=== PATIENT | female | born 1950 | race Caucasian/White ===

== ENCOUNTER 2019-04-20 11:24 | Emergency (ER) | payer MEDICARE ==
--- OUTSIDE RECORDS SUMMARY | 2019-04-20 11:53 | XMS REPORT ---
:1950 Author Name Sabinegaby Melanie Address [address] [place] [address] Care Team Providers Name Role Phone Melanie Mccann Unavailable Unavailable PROBLEMS Type Condition ICD9-CM Code [id number] Onset Condition SNOMED Code Code Dates Status Problem Incomplete N81.2 Active 835509200 uterovaginal prolapse Problem Leiomyoma of D25.9 Active 06949008 uterus, unspecified Problem Postmenopausal N95.0 Active 43316414 bleeding Problem Family history of Z80.41 Active 877463410 malignant neoplasm of ovary Problem Family history of Z80.49 Active 957622610 malignant neoplasm of other genital organs Problem Family history of Z80.3 Active 995782452 malignant neoplasm of breast ALLERGIES No Known Allergies ENCOUNTERS Encounter Location Date Diagnosis [facility] [address] Mar, OBGYN [place], [place] [id number] [facility] 103 Feb, OBGYN [place], [place] [id number] [facility] 103 Feb, Postmenopausal bleeding OBGYN [facility] N95.0 and [place] [id number] uterus, unspecified D25.9 [facility] 103 Feb, OBGYN [place], [place] [id number] [facility] 103 Feb, Postmenopausal bleeding OBGYN [facility] N95.0 and [place] [id number] uterus, unspecified D25.9 [facility] 103 Jan, Postmenopausal bleeding OBGYN [facility], [place] [id number] [facility] 103 Jan, Postmenopausal bleeding OBGYN [facility], [place] [id number] [facility] 103 Jan, Postmenopausal bleeding OBGYN [facility], [place] [id number] [facility] 103 Jan, Postmenopausal bleeding OBGYN [facility], N95.0 ; [place] [id number] uterus, unspecified D25.9 ; Abnormal findings on diagnostic imaging of other specified body structures R93.89 ; Family history of malignant neoplasm of breast Z80.3 ; Family history of malignant neoplasm of ovary Z80.41 ; Family history of malignant neoplasm of other genital organs Z80.49 ; Incomplete uterovaginal prolapse N81.2 and Family history of malignant neoplasm of other organs or systems Z80.8 IMMUNIZATIONS No Known Immunizations SOCIAL HISTORY Never Assessed REASON FOR REFERRAL FUNCTIONAL STATUS PLAN OF CARE Activity Details Follow Up as scheduled Reason: VITAL SIGNS Height 67.25 in 2019-03-03 Weight 211 lbs 2019-03-03 BMI 32.80 kg/m2 2019-03-03 Blood pressure systolic 130 mm Hg 2019-03-03 Blood pressure diastolic 70 mm Hg 2019-03-03 MEDICATIONS Medication Instructions Dosage Frequency Start End Duration Status Date Date calcium Active Cytotec 200 mcg orally 1 tab at 1 tab(s) Feb, dinner night 2018 before procedure, 1 tab at bedtime night before procedure, 1 tab at 6 AM day of procedure Aspirin Low Dose chewed once a 1 tab(s) 24h 30 day(s) Active 81 mg day metformin 500 mg orally once a 1 tab(s) 24h 30 day(s) Active day Fish oil Active escitalopram 10 orally once a 1 tab(s) 24h 30 day(s) Active mg day pantoprazole 40 orally once a 1 tab(s) 24h 30 day(s) Active mg day Trelegy Ellipta inhaled once a 1 puff(s) 24h Active 100 mcg-62.5 day mcg-25 mcg/inh Ventolin HFA 90 inhaled 4 times 2 puff(s) 6h 30 day(s) Active mcg/inh a day B-Plex Active atorvastatin 40 orally once a 1 tab(s) 24h 30 day(s) Active mg day PROCEDURES No Known procedures RESULTS No Results REASON FOR VISIT in office hyst d&c presurg. Insurance Providers [facility] Health Member Patient Patient Patient Patient Patient Subscriber Subscriber Subscriber Group Insurance Plan Plan Plan Plan ID Relationship Address Phone Name Date of ID Name Date of No Type Insurance Insurance Insurance Coverage to Subscriber Address Phone Name Dates Aetna [phone] Aetna self Tia [id number] Medicare [id number] [place] [address] MEDICAL (GENERAL) HISTORY Type Description Date Medical History hyperlipidemia Medical History DM type 2 Medical History COPD Medical History Depression Surgical History tubal ligation Surgical History right breast bx - ok 1998 Surgical History benji. breast bx - ok 1999 Hospitalization History childbirth 1970 Hospitalization History childbirth 1973 Hospitalization History see above
--- OUTSIDE RECORDS SUMMARY | 2019-04-20 11:53 | XMS REPORT ---
:1950 Author Organization [facility] Address [address] [place] [address] Care Team Providers Name Role Phone Barbara Monique Unavailable Unavailable PROBLEMS Type Condition ICD9-CM Code [id number] Onset Condition SNOMED Code Code Dates Status Problem Incomplete N81.2 Active 732172674 uterovaginal prolapse Problem Leiomyoma of D25.9 Active 46879420 uterus, unspecified Problem Postmenopausal N95.0 Active 51672155 bleeding Problem Family history of Z80.41 Active 053029541 malignant neoplasm of ovary Problem Family history of Z80.49 Active 070674566 malignant neoplasm of other genital organs Problem Family history of Z80.3 Active 913327136 malignant neoplasm of breast ALLERGIES No Known Allergies ENCOUNTERS Encounter Location Date Diagnosis [facility] [address] Mar, OBGYN [place], [place] [id number] [facility] Feb, Postmenopausal bleeding OBGYN [facility] N95.0 and [place] [id number] uterus, unspecified D25.9 [facility] 103 Feb, Postmenopausal bleeding OBGYN [facility] N95.0 and [place] [id number] uterus, unspecified D25.9 [facility] 103 Feb, OBGYN [place], [place] [id number] [facility] 103 Feb, Postmenopausal bleeding OBGYN [facility] N95.0 and [place] [id number] uterus, unspecified D25.9 [facility] 103 Jan, Postmenopausal bleeding OBGYN [facility], [place] [id number] [facility] 103 Jan, Postmenopausal bleeding OBGYN [facility], [place] [id number] [facility] Jan, Postmenopausal bleeding OBGYN [facility], [place] [id number] [facility] Jan, Postmenopausal bleeding OBGYN [facility], N95.0 ; [place] [id number] uterus, unspecified D25.9 ; Abnormal findings on [...] PLAN OF CARE Activity Details Follow Up f/u 2 wk post-op Reason: Pending Test Gynecologic Biopsy VITAL SIGNS Height 67.25 in 2019-03-09 Weight 211 lbs 2019-03-09 BMI 32.80 kg/m2 2019-03-09 Blood pressure systolic 118 mm Hg 2019-03-09 Blood pressure diastolic 66 mm Hg 2019-03-09 MEDICATIONS Medication Instructions Dosage Frequency Start End Duration Status Date Date metformin 500 mg orally once a 1 tab(s) 24h 30 day(s) Active day Trelegy Ellipta inhaled once a 1 puff(s) 24h Active 100 mcg-62.5 day mcg-25 mcg/inh B-Plex Active Ventolin HFA 90 inhaled 4 times 2 puff(s) 6h 30 day(s) Active mcg/inh a day escitalopram 10 orally once a 1 tab(s) 24h 30 day(s) Active mg day Cytotec 200 mcg orally 1 tab at 1 tab(s) Feb, Active dinner night 2018 before procedure, 1 tab at bedtime night before procedure, 1 tab at 6 AM day of procedure Fish oil Active Aspirin Low Dose chewed once a 1 tab(s) 24h 30 day(s) Active 81 mg day calcium Active atorvastatin 40 orally once a 1 tab(s) 24h 30 day(s) Active mg day pantoprazole 40 orally once a 1 tab(s) 24h 30 day(s) Active mg day PROCEDURES Procedure Date Ordered Result Body Site PARACERVICAL BLOCK Mar 09, 2019 HYSTEROSCOPY, BIOPSY Mar 09, 2019 RESULTS No Results REASON FOR VISIT in office [facility] d&c Insurance Providers [facility] Health Member Patient Patient Patient Patient Patient Subscriber Subscriber Subscriber Group Insurance Plan Plan Plan Plan ID Relationship Address Phone Name Date of ID Name Date of No Type Insurance Insurance Insurance Coverage to Subscriber Address Phone Name Dates Aetna [phone] Aetna self Tia [id number] Medicare [id number] [place] [address] MEDICAL (GENERAL) HISTORY Type Description Date Medical History hyperlipidemia Medical History DM type 2 Medical History COPD Medical History Depression Surgical History tubal ligation Surgical History right breast bx - ok 1998 Surgical History benji. breast bx - ok 1999 Hospitalization History childbirth 1970 Hospitalization History childbirth 1972 Hospitalization History see above
--- OUTSIDE RECORDS SUMMARY | 2019-04-20 11:53 | XMS REPORT ---
:1950 Author Organization [facility] Address [address] [place] [address] Care Team Providers Name Role Phone Barbara Monique Unavailable Unavailable PROBLEMS Type Condition ICD9-CM Code [id number] Onset Condition SNOMED Code Code Dates Status Problem Incomplete N81.2 Active 120335550 uterovaginal prolapse Problem Leiomyoma of D25.9 Active 83872044 uterus, unspecified Problem Postmenopausal N95.0 Active 38314330 bleeding Problem Family history of Z80.41 Active 355074192 malignant neoplasm of ovary Problem Family history of Z80.49 Active 149870082 malignant neoplasm of other genital organs Problem Family history of Z80.3 Active 531774103 malignant neoplasm of breast ALLERGIES No Known Allergies ENCOUNTERS Encounter Location Date Diagnosis [facility] [address] Feb, OBGYN [place], [place] [id number] [facility] 103 Feb, Postmenopausal bleeding OBGYN [facility] N95.0 [place] [id number] uterus, unspecified D25.9 [facility] Jan, Postmenopausal bleeding OBGYN [facility] N95.0 [place] [id number] [facility] 103 Jan, Postmenopausal bleeding OBGYN [facility] N95.0 [place] [id number] [facility] 103 Jan, Postmenopausal bleeding [facility]YN [facility]95.0 [place] [id number] [facility] Jan, Postmenopausal bleeding OBGYN [facility], N95.0 ; [place] [id number] uterus, unspecified D25.9 ; Abnormal findings on [...] PLAN OF CARE Activity Details Follow Up Schedule in hysteroscopy, D&C Reason: VITAL SIGNS Height 67.25 in 2019-02-28 Weight 211 lbs 2019-02-28 BMI 32.80 kg/m2 2019-02-28 Blood pressure systolic 140 mm Hg 2019-02-28 Blood pressure diastolic 88 mm Hg 2019-02-28 MEDICATIONS Medication Instructions Dosage Frequency Start End Duration Status Date Date calcium Active escitalopram 10 orally once a 1 tab(s) 24h 30 day(s) Active mg day Trelegy Ellipta inhaled once a 1 puff(s) 24h Active 100 mcg-62.5 day mcg-25 mcg/inh Ventolin HFA 90 inhaled 4 times 2 puff(s) 6h 30 day(s) Active mcg/inh a day metformin 500 mg orally once a 1 tab(s) 24h 30 day(s) Active day Aspirin Low Dose chewed once a 1 tab(s) 24h 30 day(s) Active 81 mg day pantoprazole 40 orally once a 1 tab(s) 24h 30 day(s) Active mg day Fish oil Active atorvastatin 40 orally once a 1 tab(s) 24h 30 day(s) Active mg day B-Plex Active PROCEDURES No Known procedures RESULTS No Results REASON FOR VISIT fup to hystero/emb fup, Recommend in office hysteroscopy Insurance Providers [facility] Health Member Patient Patient Patient Patient Patient Subscriber Subscriber Subscriber Group Insurance Plan Plan Plan Plan ID Relationship Address Phone Name Date of ID Name Date of No Type Insurance Insurance Insurance Coverage to Subscriber Address Phone Name Dates Aetna [phone] Aetna self Tia [id number] Medicare [id number] [place] [address] MEDICAL (GENERAL) HISTORY Type Description Date Medical History hyperlipidemia Medical History DM type 2 Medical History COPD Medical History Depression Surgical History tubal ligation Surgical History right breast bx - ok 1998 Surgical History benji. breast bx - ok 1999 Hospitalization History childbirth 1971 Hospitalization History childbirth 1973 Hospitalization History see above
--- OUTSIDE RECORDS SUMMARY | 2019-04-20 11:53 | XMS REPORT ---
:1950 Author Organization [facility] Address [address] [place] [address] Care Team Providers Name Role Phone Barbara Monique Unavailable Unavailable PROBLEMS Type Condition ICD9-CM Code [id number] Onset Condition SNOMED Code Code Dates Status Problem Incomplete N81.2 Active 201707808 uterovaginal prolapse Problem Leiomyoma of D25.9 Active 38883143 uterus, unspecified Problem Postmenopausal N95.0 Active 49221819 bleeding Problem Family history of Z80.41 Active 086264835 malignant neoplasm of ovary Problem Family history of Z80.49 Active 986249988 malignant neoplasm of other genital organs Problem Family history of Z80.3 Active 672672039 malignant neoplasm of breast ALLERGIES No Known Allergies ENCOUNTERS Encounter Location Date Diagnosis [facility] 103 Mar, OBGYN [place], [place] [id number] [facility] 103 Mar, Postmenopausal bleeding OBGYN [facility] N95.0 ; [place] [id number] uterus, unspecified D25.9 and Unspecified lump in unspecified breast N63.0 [facility] 103 Feb, Postmenopausal bleeding OBGYN [facility] N95.0 and [place] [id number] uterus, unspecified D25.9 [facility] 103 Feb, Postmenopausal bleeding OBGYN [facility] N95.0 and [place] [id number] uterus, unspecified D25.9 [facility] 103 Feb, [facility] [place] [id number] [facility] 103 Feb, Postmenopausal bleeding OBG[facility], N95.0 [place] [id number] uterus, unspecified D25.9 [facility] 103 Jan, Postmenopausal bleeding [facility]BG[facility], [place]95.0 [place] [id number] [facility] 103 Jan, Postmenopausal bleeding OBGYN [facility], [place] [id number] [facility] 103 Jan, Postmenopausal bleeding OBG[facility], [place] [id number] [facility] 103 Jan, Postmenopausal bleeding [facility], N95.0 ; [place] [id number] uterus, unspecified D25.9 ; Abnormal findings on [...] PLAN OF CARE Activity Details Follow Up F/u 2 weeks to L breast biopsy. F/u 3 - 4 mo to reassess for PMB. Reason: Pending Test Breast Biopsy VITAL SIGNS Height 67.25 in 2019-04-06 Weight 211 lbs 2019-04-06 BMI 32.80 kg/m2 2019-04-06 Blood pressure systolic 144 mm Hg 2019-04-06 Blood pressure diastolic 86 mm Hg 2019-04-06 MEDICATIONS Medication Instructions Dosage Frequency Start End Duration Status Date Date escitalopram 10 orally once a 1 tab(s) 24h 30 day(s) Active mg day B-Plex Active pantoprazole 40 orally once a 1 tab(s) 24h 30 day(s) Active mg day atorvastatin 40 orally once a 1 tab(s) 24h 30 day(s) Active mg day calcium Active metformin 500 mg orally once a 1 tab(s) 24h 30 day(s) Active day Trelegy Ellipta inhaled once a 1 puff(s) 24h Active 100 mcg-62.5 day mcg-25 mcg/inh Ventolin HFA 90 inhaled 4 times 2 puff(s) 6h 30 day(s) Active mcg/inh a day Fish oil Active Aspirin Low Dose chewed once a 1 tab(s) 24h 30 day(s) Active 81 mg day PROCEDURES Procedure Date Ordered Result Body Site TANGNTL BX SKIN EA SEP/ADDL Apr 06, 2019 TANGNTL BX SKIN SINGLE LES Apr 06, 2019 RESULTS No Results REASON FOR VISIT post op Insurance Providers [facility] Health Member Patient Patient Patient Patient Patient Subscriber Subscriber Subscriber Group Insurance Plan Plan Plan Plan ID Relationship Address Phone Name Date of ID Name Date of No Type Insurance Insurance Insurance Coverage to Subscriber Address Phone Name Dates Aetna [phone] Aetna self Tia [id number] Medicare [id number] [place] [address] MEDICAL (GENERAL) HISTORY Type Description Date Medical History hyperlipidemia Medical History DM type 2 Medical History COPD Medical History Depression Surgical History tubal ligation Surgical History right breast bx - ok 1998 Surgical History benji. breast bx - ok 1999 Surgical History in-office hysteroscopy, D&C 03/09/19 Hospitalization History childbirth 1970 Hospitalization History childbirth 1973 Hospitalization History see above
--- OUTSIDE RECORDS SUMMARY | 2019-04-20 11:53 | XMS REPORT ---
:1950 Author Organization [facility] Address [address] [place] [address] Care Team Providers Name Role Phone Barbara Monique Unavailable Unavailable PROBLEMS Type Condition ICD9-CM Code [id number] Onset Condition SNOMED Code Code Dates Status Problem Incomplete N81.2 Active 985975194 uterovaginal prolapse Problem Leiomyoma of D25.9 Active 69918898 uterus, unspecified Problem Postmenopausal N95.0 Active 76455133 bleeding Problem Family history of Z80.41 Active 157932587 malignant neoplasm of ovary Problem Family history of Z80.49 Active 017590319 malignant neoplasm of other genital organs Problem Family history of Z80.3 Active 443247297 malignant neoplasm of breast ALLERGIES No Information ENCOUNTERS Encounter Location Date [facility] Mar, [place], [place] [id number] [facility] 103 Feb, [place] [id number] [facility] 103 Feb, [place] [id number] [place] [facility] 103 Feb, OBG[place], [place] [id number] [facility] 103 Feb, Postmenopausal bleeding OBGYN [facility] N95.0 and [place] [id number] uterus, unspecified D25.9 [facility] 103 Jan, Postmenopausal bleeding OBGYN [facility], N95.0 [place] [id number] [facility] 103 Jan, Postmenopausal bleeding OBGYN [facility], [place] [id number] [facility] 103 Jan, Postmenopausal bleeding OBGYN [facility], [place] [id number] [facility] Jan, Postmenopausal bleeding OBGYN [facility], N95.0 ; [place] [id number] uterus, unspecified D25.9 ; Abnormal findings on [...] FOR REFERRAL FUNCTIONAL STATUS PLAN OF CARE VITAL SIGNS MEDICATIONS Unknown Medications PROCEDURES No Known procedures RESULTS No Results REASON FOR VISIT Schedule in hysteroscopy, D&C./aetna Insurance Providers [facility] Health Member Patient Patient Patient Patient Patient Subscriber Subscriber Subscriber Group Insurance Plan Plan Plan Plan ID Relationship Address Phone Name Date of ID Name Date of No Type Insurance Insurance Insurance Coverage to Subscriber Address Phone Name Dates Aetna [phone] Aetna self Tia [id number] Medicare [id number] [place] [address] MEDICAL (GENERAL) HISTORY Type Description Date Medical History hyperlipidemia Medical History DM type 2 Medical History COPD Medical History Depression Surgical History tubal ligation Surgical History right breast bx - ok 1998 Surgical History benji. breast bx - ok 1999 Hospitalization History childbirth 1971 Hospitalization History childbirth 1973 Hospitalization History see above
[2019-04-20 12:02] VITALS: BP 164/79
--- NOTE | 2019-04-20 13:13 | ED ---
Throat Pain/Nasal Congestion - HPI Summary HPI Summary: 68 yr old with the complaint of throat pain, feels like lump in throat, associated hoarse voice and feels like spasms in the throat when swallows. She had onset of this over the past day. She is a former smoker. She denies Fever , chills. Denies runny nose, coughing, post nasal drip. She does not feel ill. She has had no weight loss. - History of Current Complaint Chief Complaint: UCGeneralIllness Time Seen by Provider: 04/20/19 13:01 - Allergies/Home Medications Allergies/Adverse Reactions: Allergies Allergy/AdvReac Type Severity Reaction Status Date / Time No Known Allergies Allergy Verified 04/20/19 12:03 Home Medications: Home Medications Aspirin [Adult Low Dose Aspirin EC] 1 tab PO DAILY 04/20/19 [History Confirmed 04/20/19] Escitalopram * [Lexapro 10 mg (NF)] 1 tab PO DAILY 04/20/19 [History Confirmed 04/20/19] Fluticasone/Umeclidin/Vilanter [Trelegy Ellipta 100-62.5-25] 1 inh INH DAILY [History Confirmed 04/20/19] Lisinopril TAB* [Prinivil TAB 5 MG*] 1 tab PO DAILY 04/20/19 [History Confirmed 04/20/19] Metformin HCl [Metformin HCl ER] 1 tab PO QID 04/20/19 [History Confirmed ] Pantoprazole TAB * [Protonix TAB*] 1 tab PO DAILY 04/20/19 [History Confirmed ] Potassium 1 tab PO DAILY 04/20/19 [History Confirmed 04/20/19] PMH/Surg Hx/FS Hx/Imm Hx Endocrine/Hematology History: Reports: Hx Diabetes Cardiovascular History: Reports: Hx Hypertension Infectious Disease History: No Infectious Disease History: Denies: Traveled Outside the [place] in Last 30 Days - Family History Known Family History: Positive: None - Social History Occupation: Employed Full-time Alcohol Use: Rare Substance Use Type: Reports: None Smoking Status (MU): Former Smoker Review of Systems Constitutional: Negative Positive: Other - throat pain All Other Systems Reviewed And Are Negative: Yes Physical Exam Triage Information Reviewed: Yes Vital Signs On Initial Exam: Initial Vitals Temp Pulse Resp BP Pulse Ox 97.9 F 66 17 164/79 97 04/20/19 11:57 04/20/19 11:57 04/20/19 11:57 04/20/19 11:57 04/20/19 11:57 Vital Signs Reviewed: Yes Appearance: Positive: Well-Appearing, No Pain Distress Skin: Positive: Warm, Skin Color Reflects Adequate Perfusion Head/Face: Positive: Normal Head/Face Inspection Eyes: Positive: EOMI ENT: Positive: Normal ENT inspection, TMs normal, Hoarse voice, Uvula midline. Negative: Nasal congestion, Nasal drainage, Tonsillar swelling, Tonsillar exudate, Trismus, Muffled voice Neck: Positive: Nontender Respiratory/Lung Sounds: Positive: Clear to Auscultation, Breath Sounds Present Cardiovascular: Positive: RRR. Negative: Murmur Abdomen Description: Positive: Nontender Musculoskeletal: Positive: Strength/ROM Intact Neurological: Positive: Sensory/Motor Intact, Alert, Oriented to Person Place, Time, CN Intact II-III, Normal Gait, Speech Normal Psychiatric: Positive: Normal Diagnostics - Vital Signs Vital Signs Temp Pulse Resp BP Pulse Ox 04/20/19 11:57 97.9 F 66 17 164/79 97 - Laboratory Lab Statement: Any lab studies that have been ordered have been reviewed, and results considered in the medical decision making process. EENT Course/Dx - Course Course Of Treatment: 68 yr old with throat pain. Voice hoarse. She is a former smoker. She is going to the ER for further work up of her voice change in pain in throat. - Diagnoses Provider Diagnoses: Hoarseness or changing voice, Throat pain, Hypertension Discharge ED - Sign-Out/Discharge Documenting (check all that apply): Patient Departure All imaging exams completed and their final reports reviewed: No Studies - Discharge Plan Condition: Good Disposition: HOME-RECOMMEND TO ED Patient Education Materials: Pharyngitis (ED), Hypertension (ED) Referrals: Kenny Levine MD [Primary Care Provider] - Additional Instructions: YOU SHOULD GO TO THE ER FOR LABS AND FURTHER IMAGING OF YOUR NECK DUE TO VOICE CHANGE AND PAIN IN THROAT. - Billing Disposition and Condition Condition: GOOD Disposition: Home-Recommend to ED
== END 2019-04-20 13:15 | disposition home health service (06) ==
LOC: UCCORT 11:24
DX: R49.0 Dysphonia (principal); J02.9 Acute pharyngitis, unspecified; I10 Essential (primary) hypertension; E11.9 Type 2 diabetes mellitus without complications; Z79.84 Long term (current) use of oral hypoglycemic drugs; Z87.891 Personal history of nicotine dependence
CPT/HCPCS: 99212; G0463